=== PATIENT | male | born 1980 | race Caucasian/White ===

== ENCOUNTER 2020-07-01 07:41 | Outpatient (NON) | payer BC, SELFPAY ==
[2020-07-02 00:44] LABS: SARS-CoV-2 RNA PCR Negative
== END 2020-07-01 07:42 ==
LOC: ANHCOVIDDT 07:42
PROVIDERS: PCP Family Medicine; Visit Provider Nurse Practitioner Family
DX: J02.9 Acute pharyngitis, unspecified (principal); Z20.828 Contact with and (suspected) exposure to other viral communicable diseases
CPT/HCPCS: 87635; C9803; U0003

== ENCOUNTER 2022-05-18 08:55 | Emergency (ER) | payer BC, SELFPAY ==
[2022-05-18 09:08] VITALS: BP 137/82; PULSE 52; RESP 16; TEMP 36.4; O2SAT 100
--- NOTE | 2022-05-18 09:25 | ED.URI ---
HPI - URI/Sore Throat General Chief Complaint: Upper Respiratory Infection Stated Complaint: sore throat, headache, sinus pressure Time Seen by Provider: 05/18/22 09:20 Source: patient and RN notes reviewed Mode of arrival: ambulatory Limitations: no limitations History of Present Illness HPI Narrative: 42 y/o male presented for c/o sinus pressure and congestion worsening for one week. Endorses mild sore throat and mild cough. Mirian sob, chest pain, wheezing, n/v/d/f/c. He took Mucinex today with some relief. Reports his son had strep throat over one week ago. MD elicited complaint: cough Related Data Allergies Allergy/AdvReac Type Severity Reaction Status Date / Time moxifloxacin Allergy Rash Verified 08/29/20 15:49 Penicillins Allergy Unknown Verified 08/29/20 15:49 Review of Systems Review of Systems: CONSTITUTIONAL:Denies malaise, chills, sweats, fever EYES: Denies visual changes, redness, or discharge ENT: Per HPI CARDIOVASCULAR: Denies chest pain, palpitations, edema RESPIRATORY: Denies dyspnea GASTROINTESTINAL: Denies abdominal pain, nausea, vomiting, diarrhea SKIN: Denies rash or itching PMFSH Past Medical History Medical History BMI 24.0-24.9, adult Deviated septum Family History Family History Grandparent Family history of primary malignant neoplasm of liver Father No problems noted. Mother No problems noted. Sibling No problems noted. 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 TMs pearly albert with light reflex bilaterally; no tragal tenderness. Oropharynx erythematous without lesions or exudate, no drooling, no hoarseness, no trismus, uvula midline. No tripod positioning, muffled voice, soft palate or pharyngeal wall bulging CHEST: Clear to auscultation, breath sounds equal. HEART: Regular rate and rhythm. No murmur heard. SKIN: Warm, dry, no rash. NEURO: Alert and oriented x3. Course Course Emergency Course: Patient is aware of diagnosis, understands and agrees to treatment plan. Anticipatory guidance given. Patient agrees to follow-up as directed and is aware of reasons to seek care at the emergency department. Portions of this record may have been created with voice recognition software Level of Care: Express Care Visit Vital Signs Vital signs: Vital Signs Temperature 97.6 F 05/18/22 09:08 Pulse Rate 52 L 05/18/22 09:08 Respiratory Rate 16 05/18/22 09:08 Blood Pressure 137/82 05/18/22 09:08 Pulse Oximetry 100 05/18/22 09:08 Temperature 97.6 F 05/18/22 09:08 Pulse Rate 52 L 05/18/22 09:08 Respiratory Rate 16 05/18/22 09:08 Blood Pressure 137/82 05/18/22 09:08 Pulse Oximetry 100 05/18/22 09:08 reviewed MDM - URI/Sore Throat MDM Narrative Medical decision making narrative: Advised supportive measures and signs/symptoms to go to the ER. Pt is well appearing and appropriate for outpt treatment and f/u with pcp as scheduled 05/29/22. Differential Diagnosis Differential diagnosis: Likely upper respiratory infection, sinusitis and viral infection Discharge Plan Discharge Clinical Impression: Allergic rhinitis Patient Disposition: Home, Self-Care Condition: Stable Instructions: Allergic Rhinitis (ED) Additional Instructions: Recommend Flonase spray and Mucinex or Zyrtec for sinus congestion Tylenol 1000mg every 8 hours as needed for pain Rest, push fluids, and use humidifier Follow up with your primary care provider in 1
== END 2022-05-18 09:36 | disposition home or self-care (01) ==
PROVIDERS: Emergency Provider Nurse Practitioner Family; PCP Family Medicine
DX: J30.9 Allergic rhinitis, unspecified (principal)
CPT/HCPCS: 99211; G0463

== ENCOUNTER 2022-06-08 09:33 | Outpatient (CLI) | payer BC, SELFPAY ==
--- NOTE | 2022-06-08 09:47 | ECG_ITS ---
Measurements Intervals Ava Rate: 47 P: 6 MI: 170 QRS: 20 QRSD: 107 T: 24 QT: 435 QTc: 386 Interpretive Statements SINUS BRADYCARDIA ST ELEVATION IN DIFFUSE LEADS- PROBABLY EARLY REPOLARIZATION ABNORMAL ECG NO PREVIOUS ECG AVAILABLE FOR COMPARISON Electronically Signed On 06-08-2022 10:49:13 [employer] by Pablo Hicks D.O.
== END 2022-06-08 09:34 | disposition home or self-care (01) ==
PROVIDERS: PCP Family Medicine; Visit Provider Nurse Practitioner Family
DX: R07.9 Chest pain, unspecified (principal); E87.5 Hyperkalemia; R94.31 Abnormal electrocardiogram [ECG] [EKG]
CPT/HCPCS: 93005

== ENCOUNTER 2023-09-27 07:02 | Outpatient (CLI) | payer BC, SELFPAY ==
--- NOTE | ~2023-09-27 | XR_ITS ---
EXAMINATION: [id number] DATE: 09/27/2023 07:36 INDICATION: Left knee pain. TECHNIQUE: 2 views of left knee were obtained. COMPARISON: None. FINDINGS: Bone alignment is normal. No fracture. There is mild tricompartmental osteoarthritis. There is a small knee joint effusion. IMPRESSION: 1. Mild left knee osteoarthritis. 2. Small left knee joint effusion. Reviewed, dictated and finalized at location E. [facility]
== END 2023-09-27 07:03 | disposition home or self-care (01) ==
PROVIDERS: PCP Family Medicine; Visit Provider Nurse Practitioner Family
DX: M17.12 Unilateral primary osteoarthritis, left knee (principal); M25.462 Effusion, left knee
CPT/HCPCS: 73560